=== PATIENT | female | born 1965 | race Caucasian/White ===

== ENCOUNTER 2019-05-02 14:11 | Emergency (ER) | payer OTHER ==
[2019-05-02 14:46] VITALS: BP 133/77
--- NOTE | 2019-05-02 14:57 | UC ---
Shoulder Pain HPI - HPI Summary HPI Summary: The patient is a 53 yo female with the onset of right shoulder pain on 04/26 while at work Her pain is increasing daily She is left handed She had been doing a lot of lifting and pulling trash cans Initially pain was improved with motrin now no relief unable to abduct right shoulder > 90 degrees without pain hurts to lay on right shoulder - History of Current Complaint Chief Complaint: UCUpperExtremity Stated Complaint: RT SHOULDER INJ Time Seen by Provider: 05/02/19 14:51 Hx Obtained From: Patient Onset/Duration: Gradual Onset, Lasting Days, Worse Since - daily Timing: Constant Severity Initially: Mild Severity Currently: Moderate Location Of Pain: Is Diffuse Pain Intensity: 7 Pain Scale Used: 0-10 Numeric Character: Dull, Throbbing Aggravating Factor(s): Movement, Lifting, Internal Rotation Alleviating Factor(s): Rest Associated Signs And Symptoms: Positive: Negative Related History: Occupational Injury, Dominant Hand Left Torso: 1 - pain and tenderness here - Allergies/Home Medications Allergies/Adverse Reactions: Allergies Allergy/AdvReac Type Severity Reaction Status Date / Time No Known Allergies Allergy Verified 05/02/19 14:46 Home Medications: Home Medications Dapagliflozin Propanediol [Farxiga] 5 mg PO DAILY 05/02/19 [History Confirmed ] Metformin HCl 500 mg PO BID 05/02/19 [History Confirmed 05/02/19] Simvastatin 20 mg PO DAILY 05/02/19 [History Confirmed 05/02/19] glipiZIDE [Glipizide] 5 mg PO BID 05/02/19 [History Confirmed 05/02/19] PMH/Surg Hx/FS Hx/Imm Hx Endocrine History: Diabetes, Dyslipidemia Cardiovascular History: Hypertension - Surgical History Surgical History: Yes Surgery Procedure, Year, and Place: partial hysterectomy, foot surgery - Family History Known Family History: Positive: Hypertension, Diabetes - Social History Alcohol Use: Occasionally Substance Use Type: None Smoking Status (MU): Never Smoked Tobacco Review of Systems All Other Systems Reviewed And Are Negative: Yes Constitutional: Positive: Negative Skin: Positive: Negative Eyes: Positive: Negative ENT: Positive: Negative Respiratory: Positive: Negative Cardiovascular: Positive: Negative Gastrointestinal: Positive: Negative Genitourinary: Positive: Negative Motor: Positive: Negative Neurovascular: Positive: Negative Musculoskeletal: Positive: Arthralgia, Decreased ROM - R shoulder. Negative: Edema Neurological: Positive: Negative Psychological: Positive: Negative Physical Exam Triage Information Reviewed: Yes Appearance: Well-Appearing, No Pain Distress, Well-Nourished Vital Signs: Initial Vital Signs Temp 97.8 F 05/02/19 14:41 Pulse 61 05/02/19 14:41 Resp 16 05/02/19 14:41 BP 133/77 05/02/19 14:41 Pulse Ox 98 05/02/19 14:41 Vital Signs Reviewed: Yes Eyes: Positive: Conjunctiva Clear ENT: Positive: Hearing grossly normal. Negative: Nasal congestion, Tonsillar swelling, Tonsillar exudate, Hoarse voice Neck: Positive: Supple, Nontender, No Lymphadenopathy Respiratory: Positive: Lungs clear, Normal breath sounds, No respiratory distress, No accessory muscle use Cardiovascular: Positive: RRR, No Murmur Musculoskeletal: Positive: ROM Limited @ - right shoulder, Other: - tender anterio-lateral right shoulder Neurological: Positive: Alert Psychological Exam: Normal Skin Exam: Normal Diagnostics - Radiology No standard instances Radiology Interpretation Completed By: Radiologist Summary of Radiographic Findings: 1. FINDINGS SUGGESTIVE OF CALCIFIC TENDINITIS. 2. MILD OSTEOARTHRITIC CHANGE Shoulder Course/Dx - Differential Dx/Diagnosis Provider Diagnosis: Calcific tendonitis of right shoulder Discharge ED - Sign-Out/Discharge Documenting (check all that apply): Patient Departure All imaging exams completed and their final reports reviewed: Yes - Discharge Plan Condition: Stable Disposition: HOME Prescriptions: Naproxen [Naproxen 500 mg tab] 500 mg PO BID PRN #20 tablet PRN Reason: Pain Patient Education Materials: Calcific Tendinitis (ED) Forms: *Work Release Referrals: Pasquale Salinas MD [Medical Doctor] - As Soon As Possible Additional Instructions: heat Range of motion massage - Billing Disposition and Condition Condition: STABLE Disposition: Home
== END 2019-05-02 15:55 | disposition home or self-care (01) ==
LOC: UCCORT 14:11
DX: M75.31 Calcific tendinitis of right shoulder (principal); E11.9 Type 2 diabetes mellitus without complications; E78.5 Hyperlipidemia, unspecified; I10 Essential (primary) hypertension; Z79.84 Long term (current) use of oral hypoglycemic drugs; Z79.899 Other long term (current) drug therapy
CPT/HCPCS: 99202; G0463

== ENCOUNTER 2023-09-13 05:30 | Observation (INO) ==
[~2023-09-13 05:30] MED LIST: Naloxone 0.4 mg VIAL 0.4 mg/ml 1 ml VIAL IV PRN
[2023-09-13] MEDS ORDERED: ceFAZolin 2 GM in NS PREMIX 2 GM/100 ML BAG IVPB ONE (06:12)
[2023-09-13] MEDS ORDERED: Tranexamic Acid 1 GM/100ML BAG 2,000 MG/200 ML BAG IV ONE (06:12)
[2023-09-13 06:37] LABS: Rapid COVID-19 Molecular Undetected (Undetected)
[2023-09-13] MEDS ORDERED: ROPIVACAINE 5 MG/ML 30 ML BTL (0.5%) ONE ×2 (07:00→07:21)
[2023-09-13] MEDS ORDERED: Midazolam 2 mg/2 ml VIAL 1 mg/ml 2 ml VIAL (2 mg) ONE ×2 (07:00→07:07)
[2023-09-13] MEDS ORDERED: fentaNYL 250 mcg/5 ml 50 MCG/ML 5 ml VIAL (250 MCG) ONE (07:07)
[2023-09-13] MEDS ORDERED: Ondansetron 4 mg VIAL 2 MG/ML 2 ml VIAL ONE ×2 (08:25→11:18)
[2023-09-13] MEDS ORDERED: Propofol 10 MG/ML 20 ML BTL ONE (08:25)
[2023-09-13] MEDS ORDERED: Dexamethasone IV 4 MG/ML VIAL 1 ml VIAL ONE (08:25)
[2023-09-13] MEDS ORDERED: Acetaminophen IV 1 GM/100ML 1,000 MG/100 ML BAG IV ONE (08:25)
[2023-09-13] MEDS ORDERED: Lidocaine 2% PF 5 ML VIAL ONE (08:25)
[2023-09-13] MEDS ORDERED: KETAMINE HCL 10 MG/ML 20 ml VIAL (200 MG) ONE (08:26)
[2023-09-13] MEDS ORDERED: HYDROmorphone 0.5 MG/0.5 ML SYRINGE ONE ×4 (08:31→09:01)
[2023-09-13] MEDS ORDERED: Lactulose 30 ml UDC PO PRN (08:53)
[2023-09-13] MEDS ORDERED: Magnesium Hydroxide LIQ 30 ML UDC PO PRN (08:53)
[2023-09-13] MEDS ORDERED: Morphine 2 MG/ML SYRINGE IV PRN (08:53)
[2023-09-13] MEDS ORDERED: Ondansetron ODT 4 mg TAB 4 MG TAB PO PRN (08:53)
[2023-09-13] MEDS ORDERED: Scopolamine 1 mg/72hr PATCH ONE (09:03)
[2023-09-13] MEDS ORDERED: fentaNYL 100 mcg/2 ml 50 MCG/ML VIAL ONE (11:15)
[2023-09-13] MEDS: fentaNYL 100 mcg/2 ml 50 MCG/ML VIAL IV PRN (11:23)
[2023-09-13] MEDS: Ondansetron 4 mg VIAL 2 MG/ML 2 ml VIAL IV PRN (11:24)
[2023-09-13] MEDS ORDERED: Prochlorperazine 5 mg/ml 2 ml VIAL (10 mg) ONE (11:42)
[2023-09-13] MEDS: Prochlorperazine 5 mg/ml 2 ml VIAL (10 mg) IV PRN (11:44)
[2023-09-13] MEDS ORDERED: Dextrose 50% Syringe 50 ml 25 GM/50 ML SYRINGE IV PUSH PRN (12:35)
[2023-09-13] MEDS: Buffered Lidocaine 1% SYRIN 1 ml INTRADERM ONE (13:12)
[2023-09-13] MEDS: Lactated Ringers 1000 ml BAG 1,000 ML IV SCH ×2 (13:13)
[2023-09-13] MEDS: Magnesium Hydroxide LIQ 30 ML UDC PO SCH (13:13)
[2023-09-13] MEDS: Vitamin THERAPEUTIC TAB PO SCH (13:13)
[2023-09-13] MEDS: ceFAZolin 1 GM ADVAN 1 GM in NS 0.9% 50 ML 50 ML IVPB SCH (16:14)
[2023-09-14 06:16] LABS: Hematocrit 32.8 % (35-45); Hemoglobin 11.2 g/dL (11.5-14.3); Mean Platelet Volume 7.7 fL (7.5-11.2); Platelet Count 274 10^3/uL (150-450)
[2023-09-14 06:42] LABS: Calcium 9.5 mg/dL (8.6-10.3); Creatinine, Serum 0.82 mg/dL (0.51-0.95); Potassium 4.1 mmol/L (3.5-5.0); eGFR CKD-EPI 81.8 (>60)
[2023-09-14 10:40] VITALS: BP 138/59
== END 2023-09-14 12:30 | disposition home or self-care (01) ==
LOC: SSU 05:30 → OR 05:30
PROVIDERS: ADMIT Orthopaedic Surgery Adult Reconstructive Orthopaedic Surgery; ATTEND Orthopaedic Surgery Adult Reconstructive Orthopaedic Surgery